=== PATIENT | female | born 1980 | race Two or more races ===

== ENCOUNTER 2020-10-19 16:39 | Emergency (ER) | payer OTHER ==
[~2020-10-19] VITALS: Ht 157.5 cm; Wt 93.2 kg
[2020-10-19 16:50] VITALS: BP 148/86
--- NOTE | 2020-10-19 17:37 | NUR ---
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
--- NOTE | 2020-10-19 18:00 | NUR ---
BILAT KNEE PAIN/LT KNEE SWELLING SINCE FRIDAY, DENIES TRAUMA/INJURY, STANDS/MOVES A LOT AT NEW JOB (STARTED ~10 DAYS AGO)
[2020-10-19] MEDS ORDERED: HYDROcodone/APAP 5/325 TABLET ONE (18:37)
[2020-10-19] MEDS ORDERED: KETOROLAC 30 MG/1 ML ONE (18:37)
[2020-10-19] MEDS ORDERED: KETOROLAC 30 MG/1 ML IM ONE (19:00)
[2020-10-19] MEDS ORDERED: HYDROcodone/APAP 5/325 TABLET PO ONE (19:00)
--- NOTE | 2020-10-19 20:21 | NUR ---
Patient/Caregiver given discharge instructions and they have confirmed that they understand the instructions. Patient ambulatory with steady gait. NAD, all questions answered appropriately, denies additional needs at this time. No personal belongings left in room after discharge.
== END 2020-10-19 20:23 | disposition home or self-care (01) ==
LOC: ED 19:45
DX: M17.0 Bilateral primary osteoarthritis of knee (principal)
CPT/HCPCS: 73564; 96372; 99283; J1885